=== PATIENT | male | born 1970 | race Caucasian/White ===

== ENCOUNTER 2018-03-15 11:58 | Emergency (ER) | payer OTHER, BC ==
[2018-03-15 12:05] VITALS: BP 150/91; PULSE 72; RESP 18; TEMP 97.4
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
== END 2018-03-15 14:01 | disposition home or self-care (01) ==
LOC: EC 11:58
DX: M54.5 Low back pain (principal); M54.6 Pain in thoracic spine; E78.5 Hyperlipidemia, unspecified; I10 Essential (primary) hypertension; Z79.899 Other long term (current) drug therapy; Z88.0 Allergy status to penicillin; Z88.5 Allergy status to narcotic agent; Z88.6 Allergy status to analgesic agent; V89.2XXA Person injured in unspecified motor-vehicle accident, traffic, initial encounter; Y93.89 Activity, other specified; Y92.410 Unspecified street and highway as the place of occurrence of the external cause
CPT/HCPCS: 72072; 72100; 99283